=== PATIENT | female | born 1990 | race Caucasian/White ===

== ENCOUNTER 2017-11-26 16:59 | Inpatient (IN) | payer BC ==
[2017-11-26 18:44] LABS: PLATELET COUNT 355 10^3/uL (150-400)
--- NOTE | 2017-11-26 18:50 | EDPHY ---
HPI/HX/ROS/PE/MDM Narrative: CHIEF COMPLAINT: Right knee pain, swelling, nodule, redness HISTORY OF PRESENT ILLNESS: The patient is a 27 y/o female with a history of right ACL reconstruction 7 weeks ago (performed in [place]) complaining of a swollen, erythematous area on her right leg, over surgical site. She is also complaining of body aches, possible low-grade fever, and pain in her right knee. She was living in [place] until Thursday when she flew to [place]. For a few days prior to flying and since flying, she has been taking 324 mg aspirin daily. A few days ago, she noticed a swollen, erythematous, tender area along the suture line. The nodule is periodically red. Further, she feels that her leg "just feels weird". Her knee joint itself has been more swollen than normal and she has associated increased difficulty bending her knee and chills. She denies any other associated symptoms. No chest pain, shortness of breath, palpitations, vomiting, diarrhea, urinary complaints, headache, lightheadedness. REVIEW OF SYSTEMS: Aside from elements discussed in the HPI, a comprehensive 10-point review of systems was reviewed and is negative. PAST MEDICAL HISTORY: ACL reconstruction SOCIAL HISTORY: Girlfriend at bedside, employed as a nanny, from [place] VITAL SIGNS: Reviewed by me GENERAL: Well-developed, well-nourished, resting comfortably in no respiratory distress. HEENT: Atraumatic. Eyes: No icterus, no injection. Mouth: moist mucous membranes. No erythema or lesions. Neck: supple with no adenopathy. LUNGS: Clear to auscultation bilaterally, no wheezes, rhonchi or rales. CARDIAC: Tachycardic rate and regular rhythm, no rubs, murmurs or gallops. ABDOMEN: Soft, nontender, nondistended, bowel sounds normal. BACK: No CVA tenderness. EXTREMITIES: Right leg has a stitch abscess medially below the right knee just under the incision site. Erythema around abscess but not over knee joint itself. Right knee is swollen. Right knee is warm to the touch compared to the left. Range of motion of right knee limited, secondary to swelling, and pain. NEURO: Alert and oriented, grossly nonfocal. SKIN: Warm and dry, no rash. PSYCHIATRIC: Normal mentation, no agitation. ED Course: Procedure: Arthrocentesis. Indication: Evaluation for the possibility of septic joint. Risks, benefits, alternatives of the procedure were discussed with the patient and consent obtained. The patient was prepped and draped in the usual sterile fashion over the right knee joint. Local anesthesia was provided with 1% bupivacaine with epinephrine The joint space was entered with a 18 gauge gauge needle and 6 of cloudy fluid was obtained. There were no complications. The procedure was performed by myself. The patient presents with a stitch abscess just below the ACL reconstruction surgical incision on the lower medial aspect of the right knee. The right knee joint inself is swollen and very warm compared to the left. Plan for sepsis blood work, urinalysis, and arthrocentesis. Patient complains of feeling achy all over, her knee has been hurting her and she feels fullness in the lower extremity. 8:45 PM - Labs show elevate [place] [address] in synovial fluid. Gram stain demonstrates no organisms, 4+ white blood cells. I have spoken with Dr. Pascal, orthopedics, who will come evaluate this patient for possible septic joint and admission. 1 g of vancomycin initially ordered. However, patient was evaluated in the emergency department by Dr. Babcock's PA, Zayda, who requests no antibiotics. At the time of this dictation the patient had received 60 cc of a 250 cc bolus of Vancomycin. The vancomycin was stopped as per orthopedics request. Patient will be NPO after midnight. Further evaluation of her knee clinically as well as observation to see if her aspirate joint culture or blood cultures demonstrate any growth will be performed while in the hospital. Patient will be admitted to the hospital for close evaluation of her knee pain. Patient did have a right lower extremity ultrasound performed at this time to evaluate for any DVT. There is no evidence of DVT. There is evidence that the area of the knee medial and distal to the patella, which appears to me to be some type of stitch abscess, does in fact have a heterogeneous, fluid-filled cavity are representing probable abscess as demonstrated by the ultrasound examination. MDM: Differential diagnoses for the patient's symptom complex was considered including but not limited to septic joint, inflammation in the joint post surgery, stitch abscess, skin cellulitis, deep venous thrombus. - Data Points Imaging Results: Impression: 1. Negative for right lower extremity DVT. 2. Heterogeneous, slightly vascular collection measuring up to 2.8 cm below the patella, at the incision site. Finding is suspicious for underlying abscess in the appropriate clinical setting. Findings and recommendations discussed with Fernanda Recinos MD at 2223 hour, . Dictated By: Marie Coats MD Imaging: Discussed imaging studies w/ manager call center Radiologist Laboratory Results: Laboratory Results 11/26/17 18:30 11/26/17 18:30 Medications Given: Discontinued Medications Fentanyl (Sublimaze) 50 mcg IVP EDNOW ONE Stop: 11/26/17 18:59 Last Admin: 11/26/17 19:07 Dose: 50 mcg Sodium Chloride (Ns) 1,000 mls @ 0 mls/hr IV ONCE ONE; Wide Open PRN Reason: Protocol Stop: 11/26/17 21:25 Last Admin: 11/26/17 21:30 Dose: 1,000 mls Vancomycin/Sodium Chloride (Vancomycin 1 Gm (Premix)) 250 mls @ 250 mls/hr IV EDNOW ONE PRN Reason: Protocol Stop: 11/26/17 22:41 Last Admin: 11/26/17 21:47 Dose: 250 mls Dextrose/Sodium Chloride (D5w 1/2 Ns) 1,000 mls @ 100 mls/hr IV CONT MIGUEL ANGEL Stop: 05/25/18 22:29 Last Admin: 11/27/17 10:26 Dose: 1,000 mls Ketorolac Tromethamine (Toradol) 15 - 30 mg IVP Q6HRS PRN PRN Reason: MILD TO MODERATE PAIN Stop: 12/02/17 10:50 Last Admin: 11/27/17 12:16 Dose: 30 mg Point of Care Test Results: Blood Gas/Lactic Acid-Arterial 11/26/17 18:58 POC Blood Source VENOUS Blood Gas/Lactic Acid-Venous 11/26/17 18:58 POC VBG pH 7.43 H (7.31-7.42) POC VBG pCO2 38 mmHg L mmHg (40-44) POC VBG pO2 27 mmHg L mmHg (35-40) POC VBG HCO3 25 mEq/L mEq/L (22-26) POC VBG Total CO2 26 mEq/L mEq/L (21-27) POC VBG Base Excess 1.0 mEq/L mEq/L (-2.5-2.5) POC Mix VBG O2 Sat 50 % L % (65-75) POC Lactic Acid Coleman 0.8 mmol/L mmol/L (0.7-2.1) Microbiology Results: MICROBIOLOGY 11/26/17 19:29 Synovial Fluid - Aspirate Gram Stain - Final 11/26/17 19:29 Synovial Fluid - Aspirate Anaerobic Culture - Preliminary 11/26/17 18:53 Blood Blood Culture - Preliminary 11/26/17 18:30 Blood Blood Culture - Preliminary General Time Seen by Provider: 11/26/17 18:21 Initial Vital Signs: Initial Vital Signs Temperature (C) 37.2 C 11/26/17 17:12 Heart Rate 110 H 11/26/17 17:12 Respiratory Rate 20 11/26/17 17:12 Blood Pressure 133/75 H 11/26/17 17:12 O2 Sat (%) 98 11/26/17 17:12 O2 Delivery Mode Room Air Allergies/Adverse Reactions: amoxicillin Allergy (Verified 11/27/17 08:07) Other-Enter Comments Penicillins Allergy (Verified 11/27/17 08:07) Other-Enter Comments Home Medications: Medication Instructions Recorded Ibuprofen [Motrin (*)] 200 mg PO DAILY PRN 11/27/17 Departure - Departure Disposition: [facility] Inpatient Acute Clinical Impression: evaluate for septic joint Right knee pain Qualifiers: Chronicity: acute Qualified Code(s): M25.561 - Pain in right knee Abscess of skin Qualifiers: Site of cutaneous abscess: extremity Site of cutaneous abscess of extremity: lower extremity Laterality: right Qualified Code(s): L02.415 - Cutaneous abscess of right lower limb Condition: Good Report Scribed for: Fernanda Recinos Report Scribed by: Kenya Hernandez Date of Report: 11/26/17 Time of Report: 19:11 Physician Review and Approval Statement: Portions of this note were transcribed by a certified medical assistant. I personally performed a history, physical exam, medical decision making, and confirmed accuracy of information the transcribed note.
[2017-11-26 18:53] LABS: INR 1.03 (0.83-1.16); PROTIME(PATIENT) 13.7 SEC (12.0-15.0)
[2017-11-26] MEDS ORDERED: fentaNYL 100 MCG/2 ML INJ IVP ONE (18:58)
[2017-11-26] MEDS ORDERED: NS 1,000 ML IV ONE (21:24)
[2017-11-26] MEDS ORDERED: VANCOMYCIN HCL/NORMAL SALINE 250 ML IV ONE (21:42)
--- NOTE | 2017-11-27 00:36 | GCON ---
[f rep st] CONSULTATION HISTORY OF PRESENT ILLNESS: The patient is a pleasant 27-year-old female with a history of a right ACL reconstruction on 10/01/2017 in [place], who presented earlier this evening to our urgent care complaining of swollen and erythematous area over the distal portal of her incision from her ACL surgery. She recently traveled back from [place] on 11/23/2017 and since returning she has had a feeling of body aches, possible low grade fever, and pain to her right knee. She states that her right knee is still swollen with mld erythema and hardening over the incision, and that the nodule is periodically red. She denies any abnormal numbness or tingling, otherwise change in the heat or color to the area , abnormal bleeding, oozing, discharge. She has been compliant in her previous ACL protocol and has been progressing with PT and HEP. She does have a pertinent previous history of a right knee ACL reconstruction 7 years ago which "did not take for a few weeks." The graft eventually took and she states that the reason she had the 2nd ACL reconstruction was due to a re- tear in the ligament. She additionally denies any cough, congestion, chest pain , claudication. She has not been doing her exercises recently but states that there is no worsening change in range of motion or strength. Note: Although we requested no antibiotics be given to this patient, she received about a half-dose of vancomycin while in the emergency department. PAST SURGICAL HISTORY: Pertinent for 2 right knee ACL reconstructions, primary allograft ACLR in 2006, revision allograft ACLR ~7 weeks ago, both in [place], [place]. Importantly, she notes that she had some kind of a "graft rejection" with her first ACLR. She denies any injury to her R knee resulting in ACL deficiency, but instead notes that it simply deteriorated. PAST MEDICAL HISTORY: None. SOCIAL HISTORY: No history of smoking, alcohol, or tobacco use. She is active with recreational sports such as biking, hiking, snowsports. ALLERGIES: Amoxicillin and penicillin cause rash. FAMILY HISTORY: Denies any CVD, bleeding disorders, cancers or autoimmune disorders. MEDICATIONS: None. ROS: Otherwise, 10-point review of systems is negative except for as stated above. PHYSICAL EXAMINATION: She has been Afebrile, VSS. GENERAL: The patient is alert and oriented. Able to respond appropriately to questions. In no acute distress. HEENT: Head normocephalic, atraumatic. EOMs intact. Moist buccal mucosa. Patent nares. Hearing intact. NECK: NTTP. Full AROM. Negative Lhermitte. Negative Spurling. CV: Regular rate and rhythm. LUNGS: Nonlabored breathing. No diaphoresis. MUSCULOSKELETAL: Focalized exam of bilateral lower extremities, right knee tibial tunnel incision with trace erythema and edema, no calor or ecchymosis, possible trace fluid collection with no drainage. Trace effusion. No lymphangitis noted. TTP over distal incision site, otherwise NTTP. AROM 0 to 120 degrees, limited by minor pain, on right side compared to full range of motion on the left in knee. Compartments soft throughout. Grade 1+ Rudi with softer end-point, PS deferred, negative posterior drawer, no laxity on valgus and varus testing. Gross sensation intact B/L with 5/5 strength present B/L. Calf soft, supple, NTTP B/L, with negative bilateral Homans. LABS: Serum labs notable for increased CRP 50.3, normal ESR and CBC. Knee aspirate obtained reportedly by ER, prior to them providing the IV vancomycin, produced a cloudy yellow synovial fluid with ~53K WBCs and 93% neutrophils. Gram stain 4+ PMNs with no organisms or crystals. Culture and sensitivity pending. Ultrasound of her right lower extremity negative for DVT, possible fluid collection at tibial incision site. ASSESSMENT: Right knee pain and prior effusion status post revision allograft anterior cruciate ligament reconstruction on 10/01/2017. At this time, infection including graft sites and septic arthritis can not be ruled out, however, given the above history and clinical picture, some kind of repeat immune reaction or graft rejection may be producing her symptoms. Overall clinical picture somewhat obscured now, given that she has received some IV vancomycin. PLAN: At this time, the patient will be admitted under our service for possible right knee infection and kept NPO after midnight tonight. Advised the patient to watch for any worsening pain, fever, chills, nausea, vomiting, diarrhea, worsening change in range of motion and strength, and to seek immediate medical attention. We will continue to monitor her culture and vitals , and make a surgical decision as to I and D in the right knee. No antibiotics have been ordered at this time in order to ensure that if we need to I and D her knee that we can have appropriate cultures. TONYA koroma and SCDs have been ordered for DVT prophylaxis. WBAT BLEs, activity as tolerated, continue with ACLR surgeon's post-op protocol. The patient was seen and examined in conjunction with Dr. Babcock, who will ultimately decide if I&D/washout is warranted. /[id number]/MODL MTDD
[2017-11-27] MEDS: D5W 1/2 NS 1,000 ML IV SCH ×2 (01:11→10:26)
[2017-11-27 05:23] LABS: PLATELET COUNT 310 10^3/uL (150-400)
[2017-11-27 07:02] LABS: INR 1.08 (0.83-1.16); PROTIME(PATIENT) 14.2 SEC (12.0-15.0)
--- NOTE | 2017-11-27 09:42 | SOAPPROG ---
<Shivani Eugene S - Last Filed: 11/27/17 09:43> SOAP Progress Note Assessment/Plan: Assessment: Right knee s/p ACL recontruction with possible septic joint: was given approx 20min IV abx in ED and then it was pulled by ED physician. Patient states she has increased mobility and slightly decreased pain. Plan: No continued abx until we receive c/s back. Maintain NPO status at this time. WBAT. DVT prophylaxis: TONYA koroma, MADHAVIs, IS. An order was placed last night for these items, please furnish to patient. Awaiting culture results at this time prior to surgical decision making. Advised to watch for fever, chills, NVD, change in heat/color of extremity, worsening change in ROM or strength, worsening numbness/tingling, claudication and to seek immediate medical attn if seen. Patient discussed with Dr. Babcock. 11/27/17 09:55 Subjective: Girlfriend in room with patient. She is sitting up in bed. TONYA koroma and SCDs not present. Able to respond appropriately to questions. States she feels her pain pain is improved since last night, with slightly increased mobility. Per patient she did receive approximately 20 minutes of IV infused antibiotics in the ED when the order was changed and D/C'd per my request to the ED last night. Denies any fever, chills, worsening pain, abnormal numbness, tingling, change in heat or color of the extremity, claudication. Objective: Vital Signs Temp Pulse Resp BP Pulse Ox 37.0 C 117 H 18 136/91 H 97 11/27/17 07:50 11/27/17 07:50 11/27/17 07:50 11/27/17 07:50 11/27/17 07:50 Laboratory Results 11/27/17 04:55 11/27/17 02:00 11/26/17 11/27/17 11/28/17 05:59 05:59 05:59 Output Total 450 Balance -450 PT 14.2 SEC (12.0-15.0) 11/27/17 04:55 INR 1.08 (0.83-1.16) 11/27/17 04:55 Alert and oriented, able to respond appropriately to questions. No acute distress. Nonlabored breathing, no diaphoresis. Focalized exam of right knee: No worsening erythema, edema, ecchymosis or calor since last night. No abnormal bleeding/oozing/discharge noted. Grade 2+ effusion still present, no signs of fluctuance. AROM and PROM 0-90 before pain elicited, no signs of worsening AROM/PROM since last night. Ligaments stable throughout. Calves soft & supple & NTTP B/L with negative B/L Padmini's. Brisk cap refill B/L with 5/5 strength present distally. SCDs and TONYA hose not yet present. Microbiology: 4+neutrophils, culture still pending. MICROBIOLOGY 11/26/17 19:29 Synovial Fluid - Aspirate Gram Stain - Final ICD10 Worksheet Patient Problems: Problems Problem Status Onset Right knee pain Acute - ICD10 Problem Qualifiers (1) Right knee pain QualifierTitle: Chronicity: acute Qualified Code(s): M25.561 - Pain in right knee <Tyler Babcock - Last Filed: 11/27/17 18:07> SOAP Progress Note Assessment/Plan: Assessment: Plan: Objective: Vital Signs Temp Pulse Resp BP Pulse Ox 37.1 C 91 16 115/73 95 11/27/17 15:59 11/27/17 15:59 11/27/17 15:59 11/27/17 15:59 11/27/17 15:59 Laboratory Results 11/27/17 04:55 11/27/17 02:00 11/26/17 11/27/17 11/28/17 05:59 05:59 05:59 Intake Total 500 Output Total 450 Balance -450 500 PT 14.2 SEC (12.0-15.0) 11/27/17 04:55 INR 1.08 (0.83-1.16) 11/27/17 04:55
[2017-11-27] MEDS: KETOROLAC 30 MG/1 ML SDV IVP PRN ×2 (10:55→12:16)
--- NOTE | 2017-11-27 12:28 | PDMN ---
Medical Necessity Medical necessity: Pt meets inpt criteria per MD order and [facility] M-605, Septic Arthritis, 3 days. Pt admitted w/possible septic joint (R knee), swelling and erythema over distal portion of her incision from R ACL reconstruction Knee surgery which she had 10/01/2017, knee aspirate w/79745 WBC's and 93% neutrophils , CRP 50.6, cultures pending, surg intervention possible, NPO, IVF, IV Toradol, tachy w/HR 90's-115, anticipate>2MN for ongoing eval and treatment.
--- NOTE | 2017-11-27 14:43 | ASMTCMCOM ---
CM Note CM Note Notes: Pt possibly has knee infection, had ACL surgery September 2017. Labs being monitored. No therapies ordered. CM to follow for pt antibiotic need. Date Signed: 11/27/2017 02:42 PM Electronically Signed By:IJEOMA Rivas
--- NOTE | 2017-11-27 17:06 | PDHOSCONS ---
History and Physical - Chief Complaint knee pain - History of Present Illness 27 yo female with h/o ACL reconstruction several years ago, then repeat ACL construction 2 months ago, presented to ED with pain, general malaise, and redness surrounding one of her incision sites on her knee. This started as a red bump over the most distal incision over her anterior tibia. There was vague surrounding erythema 2 days prior to arrival. This has receded and is much better today. She denies purulent drainage. No fevers or chills. In the ED, a joint aspirate was obtained. She had >50K wbc's. No organisms were seen on gram stain. Orthopedic surgery admitted the patient and has deferred surgery or I&D given absence of an organism on culture and overall clinical improvement. Her CRP is elevated, but she has a normal wbc count and remains afebrile. She received less than 1/2 a dose of Vancomycin in the ED. Medicine is consulted to other systemic issues playing a role in her presentation. History Information - Allergies/Home Medication List Allergies/Adverse Reactions: amoxicillin Allergy (Verified 11/27/17 08:07) Other-Enter Comments Penicillins Allergy (Verified 11/27/17 08:07) Other-Enter Comments Home Medications: Aspirin [Aspirin 325 mg (*)] 325 mg PO DAILY PRN 11/27/17 [Last Taken Unknown] Ibuprofen [Motrin (*)] 200 mg PO DAILY PRN 11/27/17 [Last Taken Unknown] I have personally reviewed and updated: family history, medical history, social history, surgical history - Past Medical History no pertinent PMH - Surgical History Additional surgical history: ACL reconstruction x2 - Family History Positive for: non-pertinent - Social History Smoking Status: Never smoked Alcohol Use: None Drug Use: None Review of Systems Review of Systems: ROS: 10pt was reviewed & negative except for what was stated in HPI & below Physical Exam Physical Exam: Temp Pulse Resp BP Pulse Ox 37.1 C 91 16 115/73 95 11/27/17 15:59 11/27/17 15:59 11/27/17 15:59 11/27/17 15:59 11/27/17 15:59 Constitutional: no apparent distress Eyes: PERRL Ears, Nose, Mouth, Throat: moist mucous membranes Cardiovascular: regular rate and rhythym, systolic murmur Respiratory: no respiratory distress, clear to auscultation Gastrointestinal: normoactive bowel sounds, soft, non-tender abdomen Skin: warm Musculoskeletal: other (RLE with small palpable nodule ~1 cm over anterior tibia incision site, no warmth or surrounding erythema. No drainage. +passive and active ROM without pain. Small knee effusion, but no redness of knee) Neurologic: AAOx3 Psychiatric: interacting appropriately Lab Data & Imaging Review 11/27/17 04:55 11/27/17 02:00 WBC 7.39 10^3/uL (3.80-9.50) 11/27/17 04:55 RBC 3.73 10^6/uL (4.18-5.33) L 11/27/17 04:55 Hgb 10.4 g/dL (12.6-16.3) L 11/27/17 04:55 Hct 31.9 % (38.0-47.0) L 11/27/17 04:55 MCV 85.5 fL (81.5-99.8) 11/27/17 04:55 MCH 27.9 pg (27.9-34.1) 11/27/17 04:55 MCHC 32.6 g/dL (32.4-36.7) 11/27/17 04:55 RDW 12.4 % (11.5-15.2) 11/27/17 04:55 Plt Count 310 10^3/uL (150-400) 11/27/17 04:55 MPV 9.3 fL (8.7-11.7) 11/27/17 04:55 Neut % (Auto) 59.3 % (39.3-74.2) 11/27/17 04:55 Lymph % (Auto) 29.5 % (15.0-45.0) 11/27/17 04:55 [place] % (Auto) 9.1 % (4.5-13.0) 11/27/17 04:55 Eos % (Auto) 1.4 % (0.6-7.6) 11/27/17 04:55 Baso % (Auto) 0.3 % (0.3-1.7) 11/27/17 04:55 Nucleat RBC Rel Count 0.0 % (0.0-0.2) 11/27/17 04:55 Absolute Neuts (auto) 4.39 10^3/uL (1.70-6.50) 11/27/17 04:55 Absolute Lymphs (auto) 2.18 10^3/uL (1.00-3.00) 11/27/17 04:55 Absolute Monos (auto) 0.67 10^3/uL (0.30-0.80) 11/27/17 04:55 Absolute Eos (auto) 0.10 10^3/uL (0.03-0.40) 11/27/17 04:55 Absolute Basos (auto) 0.02 10^3/uL (0.02-0.10) 11/27/17 04:55 Absolute Nucleated RBC 0.00 10^3/uL (0-0.01) 11/27/17 04:55 Immature Gran % 0.4 % (0.0-1.1) 11/27/17 04:55 Immature Gran # 0.03 10^3/uL (0.00-0.10) 11/27/17 04:55 ESR 18 MM/HR (0-20) 11/27/17 04:55 PT 14.2 SEC (12.0-15.0) 11/27/17 04:55 INR 1.08 (0.83-1.16) 11/27/17 04:55 APTT 33.0 SEC (23.0-38.0) 11/26/17 18:30 POC Blood Source VENOUS 11/26/17 18:58 Patient Temperature 37.9 DEGREES 11/26/17 18:58 POC VBG pH 7.43 (7.31-7.42) H 11/26/17 18:58 POC VBG pCO2 38 mmHg (40-44) L 11/26/17 18:58 POC VBG pO2 27 mmHg (35-40) L 11/26/17 18:58 POC VBG HCO3 25 mEq/L (22-26) 11/26/17 18:58 POC VBG Total CO2 26 mEq/L (21-27) 11/26/17 18:58 POC VBG Base Excess 1.0 mEq/L (-2.5-2.5) 11/26/17 18:58 POC Mix VBG O2 Sat 50 % (65-75) L 11/26/17 18:58 Sodium 142 mEq/L (135-145) 11/27/17 02:00 Potassium 3.5 mEq/L (3.3-5.0) 11/27/17 02:00 Chloride 105 mEq/L (97-110) 11/27/17 02:00 Carbon Dioxide 26 mEq/l (22-31) 11/27/17 02:00 Anion Gap 11 mEq/L (8-16) 11/27/17 02:00 BUN 10 mg/dL (7-23) 11/27/17 02:00 Creatinine 0.7 mg/dL (0.6-1.0) 11/27/17 02:00 Estimated GFR > 60 11/27/17 02:00 Glucose 101 mg/dL (70-100) H 11/27/17 02:00 POC Lactic Acid Coleman 0.8 mmol/L (0.7-2.1) 11/26/17 18:58 Calcium 8.9 mg/dL (8.5-10.4) 11/27/17 02:00 Total Bilirubin 0.2 mg/dL (0.1-1.4) 11/26/17 18:30 C-Reactive Protein 50.6 mg/L (<10.0) H 11/27/17 04:55 Urine Color PALE YELLOW 11/27/17 00:24 Urine Appearance CLEAR 11/27/17 00:24 Urine pH 5.0 (5.0-7.5) 11/27/17 00:24 Ur Specific [place] 1.013 (1.002-1.030) 11/27/17 00:24 Urine Protein NEGATIVE (NEGATIVE) 11/27/17 00:24 Urine Ketones 1+ (NEGATIVE) H 11/27/17 00:24 Urine Blood 1+ (NEGATIVE) H 11/27/17 00:24 Urine Nitrate NEGATIVE (NEGATIVE) 11/27/17 00:24 Urine Bilirubin NEGATIVE (NEGATIVE) 11/27/17 00:24 Urine Urobilinogen NEGATIVE EU (0.2-1.0) 11/27/17 00:24 Ur Leukocyte Esterase NEGATIVE (NEGATIVE) 11/27/17 00:24 Urine RBC 1-3 /hpf (0-3) 11/27/17 00:24 Urine WBC 1-3 /hpf (0-3) 11/27/17 00:24 Ur Epithelial Cells TRACE /lpf (NONE-1+) 11/27/17 00:24 Urine Mucus TRACE /lpf (NONE-1+) 11/27/17 00:24 Urine Glucose NEGATIVE (NEGATIVE) 11/27/17 00:24 Fl Pathologist Review Tonja BAUMANN MD 11/26/17 19:17 Fluid Total Protein Cancelled 11/26/17 19:17 Synovial Source SYNOVIAL 11/26/17 19:17 Synovial Color YELLOW (CLS/PALE YL) H 11/26/17 19:17 Synovial Appearance CLOUDY (CLEAR) H 11/26/17 19:17 Synovial WBC 44325 /mm3 (0-150) H 11/26/17 19:17 Synovial RBC 1540 /mm3 (0-0) H 11/26/17 19:17 Synovial Neutrophils 93 % (0-25) H 11/26/17 19:17 Synovial Lymphocytes 4 % 11/26/17 19:17 Synov Monos/Macrophage 3 % 11/26/17 19:17 Synovial Crystals NONE SEEN (NONE SEEN) 11/26/17 19:17 Synovial Glucose 57 mg/dL (55-113) 11/26/17 19:17 Synovial Total Protein 4.9 g/dL 11/26/17 19:17 Assessment & Plan Assessment: Right knee pain 8 weeks post-op from ACL reconstruction - Joint aspirate revealed 53K wbcs and 93% [employer], concerning for septic joint. She is afebrile however, with nl wbcs, no orgs on gram stain and negative culture to date. In addition, she has no pain with ROM and is able to flex her knee fairly well. Discussed with Dr. Babcock, who does not recommend I&D at this point. Continue to defer atbx and follow culture data. Pain control. ID consult requested. Elevated CRP - likely related to above. Will send JOSE L to eval for underlying autoimmune issues. Follow. Full code Hospital medicine will continue to follow patient daily. Please call with questions or concerns.
--- NOTE | 2017-11-27 17:31 | GCON ---
[f rep st] CONSULTATION INFECTIOUS DISEASE CONSULTATION DATE OF CONSULTATION: 11/26/2017 REFERRING PHYSICIAN: Elisabeth Waterman MD REASON FOR CONSULTATION: Right knee pain and elevated synovial fluid cell count following right ACL surgery. HISTORY OF PRESENT ILLNESS: A 27-year-old woman with minimal past medical history whose current hist ory dates back to October 01 when she had a repeat ACL surgery in [place]. She had her surgery there due to assistance of her family postoperatively. She was in her usual state of health, returning to [facility] on November 17, but on November 22 noticed a bump along her incision line. The following day, she deve loped some increased warmth of the joint, malaise and increased leg pain. She denied fevers or chill s. She did describe some trouble bending her leg at that time. She had no drainage from the wound. She also described some bilateral elbow pain times several weeks. She denies any urinary symptoms. Her GI symptoms are at baseline with multiple loose stools daily with underlying IBS. She has no re spiratory symptoms and no dramatic changes in weight recently, although probable slight weight loss d ue to decreased appetite from pain medicines. She denies any rashes or oral lesions. While in the emergency room, patient received 20 minutes of a 1 g hour-long infusion of vancomycin. Overnight patient reports feeling significant improvement which she attributes to IV fluids and prior poor p.o. intake. PAST MEDICAL HISTORY: 1. Inflammatory process in high school with lymph node swelling intermittently, theorized to be poss ibly autoimmune. No specific diagnosis made. 2. IBS. PAST SURGICAL HISTORY: ACL surgery x2. MEDICATIONS: Vancomycin as described in HPI. Toradol as needed. ALLERGIES: Penicillin. FAMILY HISTORY: Her paternal grandmother had a jaw cancer, also fibromyalgia. No family history of gout. SOCIAL HISTORY: She works as a nanny. No tobacco. Occasional alcohol. She lives in [facility] for 3 years. Minimal alcohol. She is partnered and only dates women. REVIEW OF SYSTEMS: A complete 10-point review of systems was performed and is negative except as men tioned in the HPI. Notably patient without fevers, chills, or night sweats. OBJECTIVE: VITAL SIGNS: Blood pressure 115/73, heart rate 91, respiratory rate 16, saturation 95% o n room air, temperature 37.1. She has been afebrile throughout her hospital course. GENERAL: This is a young woman sitting up in bed, nontoxic. HEENT: She has no scleral icterus. No conjunctival h emorrhages. Oropharynx: Good dentition. Moist mucous membranes. Tongue was midline. NECK: Suppl e. No lymphadenopathy. CARDIOVASCULAR: Regular rate, no murmurs. CHEST: Clear to auscultation bi laterally. ABDOMEN: Soft, nontender. Bowel sounds are present. EXTREMITIES: Patient had a mild r ight joint effusion, mild warmth over her right knee and a small 1 cm nodular area at approximately 7 o'clock that was nontender. She had no drainage on the right knee. Her range of motion was intact and palpation of the knee was nontender. Her pulses were within normal limits. She had normal capil eric refill. NEUROLOGIC: She is alert and oriented x4. Moving all 4 extremities equally. LABORATORY: White count 7.3, hematocrit 31, platelets 310, 59% neutrophils, 29% lymphocytes. Synovi al fluid: WBC 52,399, 93% neutrophils, RBC 1540, CRP 50. Gram stain of synovial fluid is negative. Blood cultures from 11/26/2017 are negative to date. IMAGING: DVT study was negative. ASSESSMENT AND PLAN: This is a 27-year-old woman who is almost 2 months out from ACL surgery who dev eloped malaise, mild swelling of her right knee, and mild pain. Synovial fluid suggests significant inflammation with neutrophil predominance, but remarkably hemodynamically stable with a normal white count. 1. Inflammatory arthropathy of unclear etiology. Crystal evaluation was negative. Certainly, with this degree of neutrophilia and elevated white count and synovial fluid, infection is high on the dif ferential, although the lack of pain and intact range of motion of the right knee is somewhat unusual . Agree that holding antibiotics and awaiting culture is a reasonable approach. Reasonable to send a rheumatoid factor and JOSE L as a further evaluation of the inflammation in her knee. 2. Anemia. Her anemia is a bit more than I would expect post ACL surgery. MCV is normal. We will send LFTs with a total bilirubin to completely rule out hemolysis. Thank you for this consultation. We will continue to continue to see her on a daily basis. /[id number]/MODL
--- NOTE | 2017-11-27 18:12 | SOAPPROG ---
[facility] Progress Note Assessment/Plan: Assessment: ~8 weeks s/p revision allograft R ACLR in [place], for a failed prior ACLR w/ allograft in 2006 that produced some kind of graft rejection. At this time, after re-examination this afternoon, infection is appearing less likely, given negative cultures (synovial and blood), afebrile, normal serum WBC and ESR and clinical exam with relatively good ROM and trace effusion. Plan: Appreciate medicine consult, given the patient's report of prior back pain and feelings of systemic fevers and chills. We can proceed with Dr Waterman 's plan for ID consult and rheumatologic evaluation, however I believe this could be done safely in an out-patient setting at this time. I will closely follow her cultures and am on-call through the weekend. If culture becomes positive for any growth, or she shows any other signs of more objective infection (e.g. becomes febrile), then I will take her for urgent scope, I&D, washout and broad spectrum IV abx started AFTER multiple tissue and fluid intra- op cultures are sent. She is a reliable patient, and at this time can be discharged from an orthopaedic perspective. She should continue her post-op ACLR protocol. Normally, I would proceed with a repeat aspirate of any effusion , however, now that she has received IV vanco while in the ER, this would be less reliable. If she produces an effusion and is at least 5-7 days out from the IV abx, repeat aspirate would be more worthwhile. F/u with me in clinic next week, and depending on her findings, I may proceed with MRI to further evaluate for occult infection or other inflammatory process. Glenis understands all of the above and is in agreement with this plan. Please call with any questions or change in her condition. 11/27/17 18:12 Subjective: Improving pain, no fevers, chills or other complaints today. She hopes to go home. Objective: Vital Signs Temp Pulse Resp BP Pulse Ox 37.1 C 91 16 115/73 95 11/27/17 15:59 11/27/17 15:59 11/27/17 15:59 11/27/17 15:59 11/27/17 15:59 Laboratory Results 11/27/17 04:55 11/27/17 02:00 11/26/17 11/27/17 11/28/17 05:59 05:59 05:59 Intake Total 500 Output Total 450 Balance -450 500 PT 14.2 SEC (12.0-15.0) 11/27/17 04:55 INR 1.08 (0.83-1.16) 11/27/17 04:55 Afeb since admit, VSS. No ecchymosis or calor. Trace effusion and small area of possible FC over tibial incision with trace erythema. ROM 0-120 with minor pain/stiffness limiting further flexion (she notes this is her baseline prior to warming up with PT exercises). Compartments soft throughout. Otherwise exam unchanged from admit note. DNVI BLEs, neg Padmini's w/o calf TTP. Micro - read again by special request, still without any signs of growth. ICD10 Worksheet Patient Problems: Problems Problem Status Onset Right knee pain Acute
--- NOTE | 2017-11-27 19:26 | PDDCSUM ---
Discharge Summary Discharge Summary: Patient Name: Glenis Gillespie Admission Date: 11/26/2017 Discharge Date: 11/27/2017 Supervising Physician: Dr. Tyler Babcock Discharge Dx: Right knee pain following right knee revision allograft right ACLR in [place], for a failed prior ACLR w/ allograft in 2006 that produced some kind of graft rejection. Consultations: Hospitalists, I/D Procedures: Right knee aspiration performed in ED with negative cultures to date. Complications: None. History and Hospital Course: Patient is a pleasant 27yo female who presented for right knee pain on 11/26/17 following revision allograft right ACLR in [place], for a failed prior ACLR w/ allograft in 2006 that produced some kind of graft rejection. She presented to ED where aspirations and cultures were taken and she was given half a dose of vancomycin. We made her NPO in anticipation of possible I/D and have continued to monitor her vitals and labs throughout her stay. Her knee was without pain during her stay and she was able to ambulate without difficulty per her ACL protocol given by her surgeon in [place]. She has been afebrile through the course of her stay, hospitalists and I/D were consulted to help assist in her care. After re-examination this afternoon, infection appeared less likely, given the negative to date cultures, both synovial and blood cultures. She has had normal serum WBC and ESR and physical exam shows good ROM with minimal pain and trace effusion. We therefore recommend discharge to be followed up for ID consult and rheumatologic evaluation, per Dr. Waterman's plan, in an outpatient setting. We will continue to closely monitor her lab values & microbiology throughout the weekend and plan to have her follow up in clinic next week. She has been made aware that if her cultures becomes positive for any growth, or she shows any other signs of a more objective infection (i.e. becomes febrile), then Dr. Babcock will take her for urgent scope, I&D, washout and broad spectrum IV abx to be started AFTER multiple tissue and fluid intra-op cultures are sent. She is a reliable patient, and at this time can be discharged from an orthopaedic perspective. Discharge Instructions Given To Patient: Please contact our orthopedic office to be seen next week with Dr. Babcock at [phone]. Do not take antibiotics unless told to do so by Dr. Babcock. Please follow up with infectious disease per their recommendations and information. Please continue ACL protocol per surgeon in [place] and home exercise program. Purchase a thermometer and continue to monitor for fevers, if notice a temperature higher than 100.5 contact our office immediately. Watch for fever, chills, nausea, vomiting, diarrhea, change in heat/color of extremity or around wound sites, worsening swelling, cramping in calves/ankles, worsening change in range of motion or strength and seek immediate medical attention. Any questions or concerns can be directed to our office at [phone]. Patient/plan discussed and agreed upon in conjunction with Dr. Babcock.
[2017-11-27 19:27] VITALS: BP 125/88
--- NOTE | 2017-11-28 14:50 | GCON ---
[f rep st] CONSULTATION INFECTIOUS DISEASE CONSULTATION DATE OF CONSULTATION: 11/27/2017 PHYSICIAN REQUESTING CONSULTATION: Elisabeth Waterman. REASON FOR CONSULTATION: Query postoperative infections/septic arthritis of her right knee. HPI: This is a 27-year-old healthy woman who had progressive knee pain following original ACL surgery many years ago. Patient returned to the original surgeon October 01, 2017 for a redo of this procedure. Her postoperative course is fairly unremarkable, although she does describe some more swelling of her right leg than she previously experienced. The patient was in [place] and returned to the [place] area approximately 1 week ago. On November 25, she developed increasing leg pain and felt increased malaise. She also describes some trouble bending her leg. She sought care at multiple places, but due to the progressive nature of her pain, she presented to the emergency room on November 26. In the emergency room, she was found to have a mildly swollen knee, had a negative DVT study, and had a heterogeneous slightly vascular collection of 2.8 cm below the patella at the incision line. States finding is suspicious for underlying abscess in the appropriate clinical setting. A joint aspiration was performed in the emergency room, which showed a highly inflammatory synovial fluid with 52,399 WBCs, 93% neutrophils. The patient was admitted to the hospital for monitoring. Of note, she received 20 minutes of an hour long vancomycin infusion of 1 g while in the emergency room. Today, patient states that her knee feels improved with no specific intervention. Orthopedics were consulted and made the decision to continue to monitor knee due to unclear diagnosis. PAST MEDICAL HISTORY: 1. The patient had an episode in high school in which she had lymph node swelling and autoimmune disease was considered. No specific diagnosis was made. 2. Irritable bowel syndrome. PAST SURGICAL HISTORY: ACL x2. FAMILY HISTORY: Positive for jaw cancer in a paternal grandmother and fibromyalgia. No history of lupus or other immunologic deficit. 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 She lives in [place] for 3 years. Minimal alcohol. She is partnered and only dates women. REVIEW OF SYSTEMS: A complete 10-point review of systems was performed and is negative except as mentioned in the HPI. ALLERGIES: Childhood reactions, rash. MEDICATIONS: The patient received a partial dose of vancomycin. She was also on Toradol. PHYSICAL EXAM: VITAL SIGNS: Blood pressure 115/73, heart rate 91, saturation 95% on room air, respiratory rate 16, temperature 37.1. She is afebrile throughout her hospital course. GENERAL: This is a very pleasant young woman sitting up in bed, in no acute distress HEENT: Good dentition. Moist mucous membranes. NECK: Supple. CARDIOVASCULAR: Regular rate. No murmurs. CHEST: Clear to auscultation bilaterally. ABDOMEN: Soft, nontender. EXTREMITIES: She had swelling of her right knee with a thicker, harder area at the 7 o'clock position without clear fluctuance. There was mild warmth and swelling. She had remarkably good full range of motion without significant tenderness to palpation of her knee. She had no drainage. Her pulses were 2+ bilaterally. NEUROLOGIC: She is alert, oriented x4, moving all 4 extremities equally. LABS: White count 7.3, hematocrit 31, platelets of 310, 59% neutrophils, 29% lymphocytes. Synovial fluid: Gram stain was negative. A CRP was 50. No crystals were seen in the synovial fluid. Blood cultures from 11/26/2017, were taken and are no growth to date. IMAGING: As per HPI. ASSESSMENT AND PLAN: 27-year-old woman who underwent an ACL replacement September, and developed increased pain and malaise associated with her right knee. Tap of her knee certainly has significant inflammation and there is concern for underlying infection. Further, ultrasound does show a somewhat loculated area that could be concerning for abscess. Reasonable to monitor patient's clinical course and monitor cultures and if positive, wash her knee out. Also noted is patient has a fairly significant anemia that seems a bit out of proportion postop ACL. Also recommend evaluating for other types of arthritis with checking a rheumatoid factor and JOSE L. I doubt these are etiologies due to localizing symptoms. Patient will be followed by Dr. Babcock as an outpatient. He is to contact us if infection develops and will continue to follow cultures. Case was discussed with Dr. Waterman and Dr. Babcock, and agree with watchful waiting as appropriate management of inflammatory joint findings. Thank you for the consultation. /[id number]/MODL MTDD
== END 2017-11-27 20:15 | disposition home or self-care (01) | DRG 561 ==
LOC: OBSVTOIN 22:34 → F3N 11-27 00:05
PROVIDERS: ADMIT Orthopaedic Surgery; ATTEND Orthopaedic Surgery
PROC: 0S9C3ZX Drainage of Right Knee Joint, Percutaneous Approach, Diagnostic (ICD-10-PCS; principal; 2017-11-26)
DX: T84.490A Other mechanical complication of muscle and tendon graft, initial encounter (principal); E86.9 Volume depletion, unspecified
CPT/HCPCS: 83605-PO; 96365; J1885; J3010; J3370